=== PATIENT | male | born 1990 | race African-American/Black ===

== ENCOUNTER 2021-05-25 02:33 | Emergency (ER) | payer OTHER ==
[~2021-05-25] VITALS: Ht 185.4 cm; Wt 65.8 kg
[2021-05-25 02:42] VITALS: BP 149/101
[2021-05-25] MEDS ORDERED: NALO4SPR NS (06:07)
[2021-05-25 06:19] VITALS: BP 118/75
== END 2021-05-25 06:19 | disposition home or self-care (01) ==
LOC: MED 02:33
DX: F11.20 Opioid dependence, uncomplicated (principal); R41.82 Altered mental status, unspecified; F17.210 Nicotine dependence, cigarettes, uncomplicated; I10 Essential (primary) hypertension
CPT/HCPCS: 71045; 93005; 99285